=== PATIENT | female | born 2000 | race African-American/Black ===

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

== ENCOUNTER 2018-02-12 05:21 | Emergency (ER) | payer OTHER, MEDICAID ==
--- NOTE | 2018-02-12 06:41 | ER Document Report ---
HPI - HPI Patient complains to provider of: Cough Pain Level: 2 Context: Patient is a 17-year-old autistic, ADHD patient presenting to the emergency department with her mother. Mother states the patient has had a cough for the last month. Mother denies fever at any time. Mother states last night the cough sounded, "like a grown man," which is what presented her to the emergency room. Mother stated the patient did not get much sleep last night. Mother also states due to patient's medical history she does not commonly blow her nose. Mother denies the patient stating she has chest pain or shortness of breath at any time. When asked if it is hard to breathe the patient shakes her head no. Past medical history: Autism, ADHD, seizures Medications: Vistaril, Cogentin, Zyprexa, clonidine, Trileptal Allergies: Oxycodone Last menstrual period 12/19/2017 - CONSTITUTIONAL Constitutional: DENIES: Fever, Chills - EENT EENT: REPORTS: Sore Throat, Ear Pain - CARDIOVASCULAR Cardiovascular: REPORTS: Chest pain - RESPIRATORY Respiratory: REPORTS: Coughing - REPRODUCTIVE Reproductive: DENIES: : Past Medical History - General Information source: Patient, Parent - Social History Smoking Status: Never Smoker Chew tobacco use (# tins/day): No Frequency of alcohol use: None Drug Abuse: None Lives with: Family Family History: Reviewed & Not Pertinent Patient has suicidal ideation: No Patient has homicidal ideation: No Neurological Medical History: Reports: Hx Seizures - Last was 2016, believed to be induced by polypharmacy Renal/ Medical History: Denies: Hx Peritoneal Dialysis GI Medical History: Reports: Hx Pancreatitis Psychiatric Medical History: Reports: Hx Attention Deficit Hyperactivity Disorder - Immunizations Hx Diphtheria, Pertussis, Tetanus Vaccination: Yes Vertical Provider Document - CONSTITUTIONAL Agree With Documented VS: Yes Notes: GENERAL: Alert, interacts well. No acute distress. HEAD: Normocephalic, atraumatic. EYES: Pupils equal, round, and reactive to light. Extraocular movements intact. ENT: Oral mucosa moist, tongue midline. Nares patent, TM's intact, not erythematous nonbulging. Pharynx within normal limits, no exudate noted no palatal petechiae. NECK: Full range of motion. Supple. Trachea midline. No adenopathy appreciated LUNGS: Clear to auscultation bilaterally, no wheezes, rales, or rhonchi. No respiratory distress. HEART: Regular rate and rhythm. No murmur ABDOMEN: Soft, non-tender. Non-distended. Bowel sounds present in all 4 quadrants. EXTREMITIES: Moves all 4 extremities spontaneously. No edema, normal radial and dorsalis pedis pulses bilaterally. No cyanosis. BACK: no cervical, thoracic, lumbar midline tenderness. No saddle anesthesia, normal distal neurovascular exam. NEUROLOGICAL: Alert and oriented to person and place. Normal speech for patient , per mother. Cranial nerves II through XII grossly intact SKIN: Warm, dry, normal turgor. No rashes or lesions noted. - INFECTION CONTROL TRAVEL OUTSIDE OF THE [place] IN LAST 30 DAYS: No Course - Re-evaluation Re-evalutation: 02/12/18 06:42 Chest x-ray negative for pneumonia at this time. Discussed upper respiratory infection diagnosis with mother at bedside. Discussed use of prescription cough medicine. Discussed use of humidifier to loosen up nasal secretions. Discussed following up with patient's Primary care in the next 24-48 hours return precautions discussed. - Vital Signs Vital signs: Temp Pulse Resp BP Pulse Ox 98.0 F 112 H 20 124/71 100 02/12/18 05:37 02/12/18 05:37 02/12/18 05:37 02/12/18 05:37 02/12/18 05:37 Discharge - Discharge Clinical Impression: Cough Condition: Stable Disposition: HOME, SELF-CARE Instructions: Viral Syndrome ([facility]) Additional Instructions: Your daughter's chest x-ray results shows no signs of pneumonia. As we discussed you should use the prescription cough medication as prescribed. You can also use a humidifier to help loosen up some of the nasal secretions. You should follow-up with patient's tax assessor in the next 24-48 hours. Please return to the emergency room for any other worsening symptoms. Prescriptions: Benzonatate [Tessalon Perles 100 mg Capsule] 100 mg PO Q8HP PRN #40 capsule PRN Reason: Referrals: SERG LAU MD [Primary Care Provider] - Follow up as needed
--- NOTE | 2018-02-12 06:41 | RADIOLOGY REPORT (SQ) ---
EXAM DESCRIPTION: X-ray two view chest. CLINICAL HISTORY: 17 years Female, cough COMPARISON: None. TECHNIQUE: PA and Lateral views of the chest performed on 02/12/2018 at 6:21 AM FINDINGS: The lungs are well expanded and are clear. The costophrenic sulci are clear. There is no evidence of a pneumothorax. The cardiac silhouette is normal in size. The mediastinal contours are normal. No acute osseous abnormalities are identified. No focal soft tissue abnormalities are identified. IMPRESSION: No evidence of acute intrathoracic disease.
[2018-02-12 07:24] VITALS: BP 122/75
== END 2018-02-12 07:24 | disposition home or self-care (01) ==
LOC: ER 05:21
DX: R05 Cough (principal)
CPT/HCPCS: 71046; 99283

== ENCOUNTER 2018-04-14 09:36 | Emergency (ER) | payer OTHER, MEDICAID ==
[2018-04-14 09:48] VITALS: BP 116/80
--- NOTE | 2018-04-14 10:12 | ER Document Report ---
ED Extremity Problem, Lower - General Chief Complaint: Ankle Swelling Stated Complaint: ANKLE PAIN Time Seen by Provider: 04/14/18 09:46 Mode of Arrival: Ambulatory Information source: Parent Notes: 17-year-old autistic female brought to the ED by her mother this morning because she had some swelling to both ankles more so on the left. Mom states she has not injured herself patient denies any pain. Mother states she is on some medicine that does affect her ankles. She also states she got some lab work back from [facility] that she was concerned about said that she had a low ANC and white count. I discussed these with mother and told her that she should follow- up with her primary doctor today to be ensure that her primary doctor had received these results that they can follow up with him. It could be some of the medications she is taking is affecting her white count. Mother stated she would keep her child home today and would follow-up with her primary doctor. No need to draw blood work in the emergency room as she is not experiencing any signs or symptoms of infection and is not experiencing any pain. States the only reason she brought her for the ankles was because of the lab results they called her. TRAVEL OUTSIDE OF THE [place] IN LAST 30 DAYS: No - HPI Patient complains to provider of: Swelling Location: Ankle Occurred: This morning Where: Home Onset/Duration: Gradual - Woke up with Quality of pain: No pain - swollen ankles Severity: None Pain Level: Denies Recent injury: No Exacerbated by: Nothing Relieved by: Nothing - Related Data Allergies/Adverse Reactions: oxycodone Allergy (Intermediate, Verified 04/14/18 09:37) itching Past Medical History - General Information source: Parent - Social History Smoking Status: Never Smoker Cigarette use (# per day): No Chew tobacco use (# tins/day): No Smoking Education Provided: No Frequency of alcohol use: None Drug Abuse: None Lives with: Family Family History: Reviewed & Not Pertinent Patient has suicidal ideation: No Patient has homicidal ideation: No - Past Medical History Cardiac Medical History: Reports: None Pulmonary Medical History: Reports: None EENT Medical History: Reports: None Neurological Medical History: Reports: Hx Seizures - Last was 2016, believed to be induced by polypharmacy Endocrine Medical History: Reports: None Renal/ Medical History: Reports: None Malignancy Medical History: Reports: None GI Medical History: Reports: Hx Pancreatitis Musculoskeletal Medical History: Reports None Psychiatric Medical History: Reports: Hx Attention Deficit Hyperactivity Disorder, Other - autism Traumatic Medical History: Reports: None Infectious Medical History: Reports: None Surgical Hx: Negative - Immunizations Immunizations up to date: Yes Hx Diphtheria, Pertussis, Tetanus Vaccination: Yes Review of Systems - Review of Systems Constitutional: No symptoms reported EENT: No symptoms reported Cardiovascular: No symptoms reported Respiratory: No symptoms reported Gastrointestinal: No symptoms reported Genitourinary: No symptoms reported Female Genitourinary: No symptoms reported Musculoskeletal: Ankle swelling Skin: No symptoms reported Hematologic/Lymphatic: No symptoms reported Neurological/Psychological: No symptoms reported -: Yes All other systems reviewed and negative Physical Exam - Vital signs Vitals: Temp Pulse Resp BP Pulse Ox 97.9 F 94 H 14 116/80 98 04/14/18 09:45 04/14/18 09:45 04/14/18 09:45 04/14/18 09:45 04/14/18 09:45 Interpretation: Normal - General General appearance: Appears well, Alert - HEENT Head: Normocephalic, Atraumatic Eyes: Normal Pupils: PERRL - Respiratory Respiratory status: No respiratory distress Chest status: Nontender Breath sounds: Normal Chest palpation: Normal - Cardiovascular Rhythm: Regular Heart sounds: Normal auscultation Murmur: No - Abdominal Inspection: Normal Distension: No distension Bowel sounds: Normal Tenderness: Nontender Organomegaly: No organomegaly - Back Back: Normal, Nontender - Extremities General upper extremity: Normal inspection, Nontender, Normal color, Normal ROM, Normal temperature General lower extremity: Nontender, Normal color, Normal ROM, Normal temperature, Normal weight bearing. No: Alma's sign Ankle: Edema - 1+. No: Tender, Abrasion, Deformity, Ecchymosis, Limited ROM, Positive Terrell's test, Unable to bear weight - Neurological Neuro grossly intact: Yes Cognition: Normal Orientation: AAOx4 [place] Coma Scale Eye Opening: Spontaneous [place] Coma Scale Verbal: Oriented [place] Coma Scale Motor: Obeys Commands [place] Coma Scale Total: 15 Speech: Normal Motor strength normal: LUE, RUE, LLE, RLE Sensory: Normal - Psychological Associated symptoms: Normal affect, Normal mood - Skin Skin Temperature: Warm Skin Moisture: Dry Skin Color: Normal Course - Re-evaluation Re-evalutation: 04/14/18 10:15 States the child has ankle edema bilaterally worse on the left with no history of injuries no bruising no tenderness. Patient has full range of motion. Mother was instructed to follow-up with primary doctor for the ankle swelling and for her lab results she got back from her psych doctor. Mother verbalized understanding and agreement with treatment plan. - Vital Signs Vital signs: Temp Pulse Resp BP Pulse Ox 97.9 F 94 H 14 116/80 98 04/14/18 09:45 04/14/18 09:45 04/14/18 09:45 04/14/18 09:45 04/14/18 09:45 Discharge - Discharge Clinical Impression: Ankle swelling Qualifiers: Laterality: unspecified laterality Qualified Code(s): M25.473 - Effusion, unspecified ankle Condition: Stable Disposition: HOME, SELF-CARE Additional Instructions: Edema, Peripheral You have swelling in your legs. This is called peripheral edema. It can be caused by "leaky capillaries," inflammation, disease of the leg veins, or excess salt and water in your body. Edema may be a sign of heart, kidney, or liver disease. A medical evaluation can determine if there is a serious underlying cause for your edema. Avoid prolonged standing. If you must sit for a long time, occasionally get up and walk around or elevate your legs. Support stockings can be helpful in limiting swelling. Often diuretic or water pills are used to remove excess salt and water from your body. Call the doctor or return if you develop increased swelling, pain, or redness, shortness of breath, chest pain, or any other significant change. These call primary doctor today in follow-up concerning the lab results she got from your CNC doctor and for the minimal edema to the ankles with no pain and no injury. FOLLOW-UP CARE: If you have been referred to a physician for follow-up care, call the physicians office for an appointment as you were instructed or within the next two days. If you experience worsening or a significant change in your symptoms, notify the physician immediately or return to the Emergency Department at any time for re-evaluation. Referrals: TUTU GARBER MD [Primary Care Provider] - Follow up as needed
== END 2018-04-14 10:14 | disposition home or self-care (01) ==
LOC: ER 09:36
DX: M25.472 Effusion, left ankle (principal); M25.471 Effusion, right ankle; Z88.5 Allergy status to narcotic agent
CPT/HCPCS: 99283